=== PATIENT | female | born 2005 ===

== ENCOUNTER 2023-12-03 17:53 | Observation (INO) ==
[2023-12-03 20:16] LABS: Basophils # (auto) 0.01 K/uL (0.00-0.20); Basophils % (auto) 0.1 %; Eosinophils # (auto) 0.03 K/uL (0.00-0.50); Eosinophils % (auto) 0.3 %; Hemoglobin 10.4 g/dl (12.0-16.0); Immature Granulocytes # (auto) 0.04 K/uL (0.01-0.20); Immature Granulocytes % (auto) 0.4 %; Lymphocytes # (auto) 1.59 K/uL (1.20-3.40); Lymphocytes % (auto) 16.8 %; Mean Corpuscular Hemoglobin 25.4 pg (25.0-34.0); Mean Corpuscular Hgb Conc 30.6 g/dL (32.0-36.0); Mean Corpuscular Volume 82.9 fL (80.0-100.0); Mean Platelet Volume 11.1 fL (9.4-12.4); Monocytes # (auto) 0.93 K/uL (0.11-0.59); Monocytes % (auto) 9.8 %; Neutrophils # (auto) 6.86 K/uL (1.40-6.50); Neutrophils % (auto) 72.6 %; Platelet Count 243 K/uL (130-400); RDW Coefficient of Variation 14.4 % (11.5-14.5); RDW Standard Deviation 43.4 fL (36.4-46.3); White Blood Count 9.46 K/ul (4.8-10.8)
[2023-12-03 20:59] LABS: HIV 4th Gen(HIV 1,2 AB+p24 Ag Negative (Negative)
[2023-12-03 21:06] LABS: HepB Surface Ag with confirm Negative (Negative)
[2023-12-03 21:11] LABS: HepC Ab Rflx HepCQuant RNA Negative (Negative)
[2023-12-03 21:29] LABS: Rubella IgG Ab Immune (Immune); Rubella IgG Qnt 16.6 IU/mL
--- NOTE | 2023-12-03 21:31 | Ultrasound Report ---
Examination: OB Ultrasound, CLINICAL HISTORY: Dating Technique: Multiple real-time transabdominal sonographic images were obtained. Comparison: None available at the time of this dictation. Findings: Single live intrauterine is seen with cephalic presentation. heart rate measures 1 42 bpm. Amniotic fluid index is 15 cm. Placenta is noted in the left lateral orientation. The cervix is not visualized due to shadowing. Measurements are as follows: Biparietal diameter: 9.3 cm Head circumference: 32.91 cm Femur length: 7.33 cm Abdominal circumference: 34.08 cm. Findings correspond to a gestational age of 37 weeks 5 days. IMPRESSION: A single live intrauterine with estimated gestational age of 37 weeks 5 days. ACT 112: Negative or not required by law. Electronically signed by: Prashanth Wells M.D. 12/03/2023 9:29 PM
--- NOTE | 2023-12-03 21:43 | History & Physical Report ---
Date of Service December 03, 2023 Assessment & Plan (1) No care in current in third trimester: Plan: Plan is to register for care with the [facility] medical group. Plan Plan is to register her for routine care with [facility] [employer] group. Admission and Anticipated Discharge Date Admission Date: December 03, 2023 History of Present Illness Chief Complaint: No care. No blood work. Primary Care Provider: NO PCP Patient is a 18-year-old female from [facility]. She arrived in this country about 1 month prior to this visit. She had care in [facility]. She had several ultrasounds done there. Patient states that these ultrasounds gave her a due date of between 12/07 and 12/10/2023. Patient came from the ER unassigned call. Patient went to the ER to establish with physician for delivery of her . And also for blood work and ultrasound. Routine blood work was done. blood work did reveal anemia with hemoglobin of 10.6. Allergies Allergy/AdvReac Type Severity Reaction Status Date / Time No Known Allergies Allergy Unverified 12/03/23 18:54 Past Med/Surg History Problem List (Updated 12/03/23 @ 21:49 by Kale Gonzáles MD) No care in current in third trimester Medical History (Updated 12/03/23 @ 21:49 by Kale Gonzáles MD) Iodine deficiency Social History Smoking Status: Never smoker Hx Alcohol Use: No Hx Substance Use: No Preferred Language: Other Communication Ability: Effective Brass Molder Required: Yes Beliefs That Will Affect Care: Pentecostal marital status: Current Living Situation: Spouse Other Information That Helps Us Care for You: No Feels Safe at Home: Yes Assistive Devices: None Physical Exam Physical Exam: Physical exam revealed chest clear to auscultation and percussion. Neck supple trachea midline. Heart had a regular rhythm S1 and S2 were normal. Abdomen revealed a gravid abdomen consistent with a term size fetus. No tenderness palpated. No costovertebral angle tenderness. No calf tenderness. Results & Data Results & Data Vital Signs (Past 12 Hours) Vital Signs Temp Pulse Resp BP 12/03/23 19:30 16 12/03/23 19:30 36.8 C 16 12/03/23 19:27 77 12/03/23 19:27 111/64 12/03/23 18:01 36.4 C L 12/03/23 18:00 87 116/67 Diagnostic Findings Physical exam consistent with a term
== END 2023-12-03 22:05 | disposition home or self-care (01) ==
LOC: 4S1 17:53 → OPB 17:53 → 4S1 17:56

== ENCOUNTER 2023-12-09 06:19 | Inpatient (IN) ==
[2023-12-09] MEDS ORDERED: LIDOCAINE 1% LOCAL 20 ML VIAL INFIL PRN (07:20)
[2023-12-09] MEDS ORDERED: OXYTOCIN 30 UNITS/NSS 30 UNITS/500 ML BAG IV PRN ×2 (07:24→21:25)
--- NOTE | 2023-12-09 07:29 | History & Physical Report ---
Date of Service December 09, 2023 Assessment & Plan (1) No care in current in third trimester: Plan: Admit to L&D History of Present Illness Chief Complaint: ruptured membranes Primary Care Provider: [facility] PCP 18 Ida P0Jewell who presents to L&D for rupured membranes at 2 AM confirmed with [facility]. She wa seen 11/29 in L&D to [facility] [place]. 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 Review of Systems All systems reviewed & are unremarkable except as noted in HPI & below Physical Exam Constitutional: WD/WN, vitals as above Eyes: PERRL, conjunctivae normal, anicteric sclerae Neck: trachea midline, no thyromegaly Cardiovascular: RRR, no murmur, no edema Gastrointestinal (Abdomen): Inspection/Auscultation: abdomen normal to inspection Musculoskeletal: no cyanosis or clubbing, extremities motor strength 5/5 Skin: no rashes, warm and dry Neurologic: patellar DTR's 2+ bilat, sensation intact Psychiatric: A+Ox3, euthymic affect Results & Data Vital Signs (Past 12 Hours) Vital Signs Temp Pulse BP 12/09/23 07:01 97 H 109/54 L 12/09/23 06:40 36.8 C 95 H 98/58 L Code Status & VTE Plan VTE Prophylaxis Plan VTE Prophylaxis will be ordered: No Monitoring External Monitor Cat 1
--- NOTE | 2023-12-09 07:36 | History & Physical Report ---
Date of Service December 09, 2023 Assessment & Plan (1) No care in current in third trimester: Plan: admit to L&D History of Present Illness Chief Complaint: ruptured membranes Primary Care Provider: [facility] PCP 18 F P0000 at term with c/o of lekage of fluid since 2 AM with onset of contractions. She was seen in L&D on 11/30/23 to establish care in this country since she is from [facility]. She had care there. Her has been uncomplicated. 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 Review of Systems All systems reviewed & are unremarkable except as noted in HPI & below Physical Exam Constitutional: WD/WN, vitals as above Eyes: PERRL, conjunctivae normal, anicteric sclerae Respiratory: normal respiratory effort, lungs clear to auscultation Cardiovascular: RRR, no murmur, no edema Gastrointestinal (Abdomen): Inspection/Auscultation: abdomen normal to inspection Musculoskeletal: Extremities: extremities normal to inspection Skin: no rashes, warm and dry Neurologic: patellar DTR's 2+ bilat, sensation intact Psychiatric: A+Ox3, euthymic affect Genitourinary: Manual OB Exam: + cervical dilation fingertip, + cervical effacement 50% and + station high OB Exam Monitor Tracing: + external FHT monitor used, + external uterine monitor used, + category I and + normal FHT variability Results & Data Vital Signs (Past 12 Hours) Vital Signs Temp Pulse BP 12/09/23 07:01 97 H 109/54 L 12/09/23 06:40 36.8 C 95 H 98/58 L Code Status & VTE Plan VTE Prophylaxis Plan VTE Prophylaxis will be ordered: No Monitoring External Monitor Cat 1
[2023-12-09 07:59] LABS: Hematocrit (blood only) 34.8 % (37.0-47.0); Hemoglobin 10.8 g/dl (12.0-16.0); Mean Corpuscular Hemoglobin 25.8 pg (25.0-34.0); Mean Corpuscular Volume 83.1 fL (80.0-100.0); Mean Platelet Volume 10.9 fL (9.4-12.4); Platelet Count 245 K/uL (130-400); RDW Coefficient of Variation 14.6 % (11.5-14.5); RDW Standard Deviation 44.1 fL (36.4-46.3); Red Blood Count 4.19 M/uL (4.20-5.40); White Blood Count 9.91 K/ul (4.8-10.8)
[2023-12-09] MEDS: miSOPROStoL 50 MCG TAB PO ONE (09:06)
[2023-12-09] MEDS: LACTATED RINGER'S 1,000 ML IV PRN (16:05)
[2023-12-09] MEDS: BUTORPHANOL TARTRATE 2 MG/ML VIAL IV ONE (16:10)
[2023-12-09] MEDS ORDERED: LIDOCAINE 2% MPF LOCAL 5 ML VIAL EPI PRN (18:04)
[2023-12-09] MEDS ORDERED: fentaNYL citrate PF 100 MCG/2 ML VIAL EPI PRN (18:04)
[2023-12-09] MEDS ORDERED: NALBUPHINE HCL 5 MG in SYRINGE 0 ML IV PRN (18:04)
[2023-12-09] MEDS ORDERED: ePHEDrine sulfate 50 MG/ML AMP IV PRN (18:04)
[2023-12-09] MEDS ORDERED: NALOXONE HCL 0.4 MG/1 ML VIAL/CARP IV PRN (18:04)
[2023-12-09] MEDS ORDERED: NALOXONE HCL 1 MG in SODIUM CHLORIDE 0.9% 1,000 ML IV PRN (18:04)
[2023-12-09] MEDS ORDERED: SODIUM CHLORIDE 0.9% PF INJ 10 ML VIAL EPI PRN (18:04)
[2023-12-09] MEDS ORDERED: ROPIVACAINE 0.5% PF 5 MG/ML 20 ML VIAL EPI PRN (18:04)
[2023-12-09] MEDS ORDERED: BUPIVACAINE 0.25% PF 30 ML VIAL EPI PRN (18:04)
[2023-12-09] MEDS ORDERED: fentANYL 2 MCG/ML BUPIVacaine 0.125%-NSS 100ML BAG EPI PRN (18:04)
[2023-12-09] MEDS ORDERED: diphenhydrAMINE 50 MG/ML VIAL IV PRN (18:04)
--- NOTE | 2023-12-09 18:04 | Anesthesiology Consultation ---
Date of Service December 09, 2023 Assessment & Plan Chart Review Chart Review: Acceptable Risk for Labor Epidural Consults Requested none History Height/Weight Height: 5 ft 2.2 in Weight: 66 kg Allergies Allergy/AdvReac Type Severity Reaction Status Date / Time No Known Allergies Allergy Unverified 12/03/23 18:54 Medications Active Medications Generic Name Dose Route Start Last Admin Trade Name Manoloq PRN Reason Stop Dose Admin Lactated Ringer's 1,000 mls @ 125 mls/hr 12/09/23 07:20 12/09/23 18:00 Lr IV 12/11/23 07:19 999 mls/hr .Q8H PRN Infusion L&D Protocol Protocol Past Medical History Medical History (Updated 12/09/23 @ 08:18 by Samantha Valles RN) Hypothyroidism Iodine deficiency Social History Smoking Status: Never smoker Hx Alcohol Use: No Hx Substance Use: No Physical Exam Vital Signs Last Vital Signs Temp 36.7 C 12/09/23 09:00 Pulse 74 12/09/23 16:15 Resp 16 12/09/23 07:01 BP 120/71 12/09/23 16:15 Constitutional WD/WN, vitals as above Eyes PERRL, conjunctivae normal, anicteric sclerae Neck trachea midline, no thyromegaly Respiratory normal respiratory effort, lungs clear to auscultation Cardiovascular RRR, no murmur, no edema Gastrointestinal (Abdomen) Inspection/Auscultation: abdomen normal to inspection Musculoskeletal no cyanosis or clubbing, extremities motor strength 5/5 Extremities: extremities normal to inspection Skin no rashes, warm and dry Neurologic patellar DTR's 2+ bilat, sensation intact Psychiatric A+Ox3, euthymic affect Genitourinary Manual OB Exam: + cervical dilation + fingertip, + cervical effacement + 50% and + station + high OB Exam Monitor Tracing: + external FHT monitor used, + external uterine monitor used, + category I and + normal FHT variability Testing Laboratory Results 12/09/23 07:40
[2023-12-09] MEDS: fentANYL 2 MCG/ML BUPIVacaine 0.125%-NSS 100ML BAG ONE (18:45)
[2023-12-09] MEDS: LIDOCAINE 2%/EPINEPHRINE 1:200,000 20 ML PF ONE (18:45)
[2023-12-09] MEDS: BUPIVACAINE 0.25% PF 30 ML VIAL ONE (19:31)
[2023-12-09] MEDS: ePHEDrine sulfate 50 MG/ML AMP ONE (19:32)
[2023-12-09] MEDS: SODIUM CHLORIDE 0.9% PF INJ 10 ML VIAL ONE (19:32)
[2023-12-09] MEDS: fentaNYL citrate PF 100 MCG/2 ML VIAL EPI STA (19:32)
[2023-12-09] MEDS: fentaNYL citrate PF 100 MCG/2 ML VIAL ONE (19:32)
[2023-12-09] MEDS: BUPIVACAINE 0.25% PF 30 ML VIAL EPI STA (19:32)
[2023-12-09] MEDS: SODIUM CHLORIDE 0.9% PF INJ 10 ML VIAL EPI STA (19:33)
[2023-12-09] MEDS: LIDOCAINE 2%/EPINEPHRINE 1:200,000 20 ML PF EPI STA (19:34)
[2023-12-09] MEDS: OXYTOCIN 30 UNITS/NSS 30 UNITS/500 ML BAG IV PRN (20:45)
[2023-12-09] MEDS: METHYLERGONOVINE MALEATE 0.2 MG/ML AMP IM ONE (21:10)
[2023-12-09] MEDS ORDERED: ACETAMINOPHEN W/CODEINE #3 1 TAB PO PRN (21:25)
[2023-12-09] MEDS ORDERED: bisacodyL 10 MG SUPP PR PRN (21:25)
[2023-12-09] MEDS ORDERED: HYDROCORTISONE ACETATE 25 MG SUPP PR PRN (21:25)
[2023-12-09] MEDS ORDERED: DIPHTHER/TETAN/PERTUS Vaccine (Tdap, Adol/Adult) 0.5mL IM ONE (21:25)
[2023-12-09] MEDS ORDERED: oxyCODONE/ACETAMINOPHEN 5mg/325mg TAB PO PRN (21:25)
--- NOTE | 2023-12-09 21:35 | Delivery Summary ---
Vaginal Delivery Summary Date of Service December 09, 2023 Vaginal Delivery Summary Patient is a 1 para 1 late arrival for care. She only had 1 or 2 visits. Was admitted at 40 weeks gestation ruptured membranes. Given 1 p.o. dose of Cytotec. Contracted on her own went about 6 to 7 cm. Was given epidural. Membranes ruptured. Slight meconium. Went to full dilatation. Pushed out a live female via direct occiput anterior position over an intact perineum. Baby was delivered with a nuchal cord around the neck. Cord was allowed to pulse for 1 full minute. Cord was then clamped cut by the father. Cord blood was taken. With IV Pitocin running the placenta was removed intact. IM Methergine was used to help with the bleeding. First-degree laceration of the perineum was repaired anatomically. The vaginal mucosa was approximated out to beyond the hymenal ring with a 2-0 Vicryl. A deep suture of 2-0 Vicryl were used to approximate the bulbocavernosus muscle. 2 sutures were used to approximate the perineal body. A running subcuticular suture was used to approximate the perineal skin edges. Badge exam including rectovaginal examination revealed no hematoma formation or stitches through the rectum. Quantitative blood loss was 173 mL.
[2023-12-09] MEDS: ONDANSETRON INJ 2 MG/ML 2 ML VIAL IV PRN (23:00)
[2023-12-09] MEDS: BENZOCAINE 20% SPRY 85 APPLN/85 GM CAN EXT PRN (23:46)
[2023-12-09] MEDS: IBUPROFEN 600 MG TAB PO PRN (23:47)
[2023-12-10] MEDS: METHYLERGONOVINE MALEATE 0.2 MG/ML AMP ONE (04:28)
[2023-12-10 06:17] LABS: Hematocrit (blood only) 34.4 % (37.0-47.0); Mean Corpuscular Hemoglobin 26.3 pg (25.0-34.0); Mean Corpuscular Volume 82.3 fL (80.0-100.0); Platelet Count 232 K/uL (130-400); RDW Coefficient of Variation 14.7 % (11.5-14.5); RDW Standard Deviation 43.8 fL (36.4-46.3); Red Blood Count 4.18 M/uL (4.20-5.40); White Blood Count 16.64 K/ul (4.8-10.8)
[2023-12-10] MEDS: PRENATAL VITAMIN 1 TAB PO SCH (08:41)
[2023-12-10] MEDS: DOCUSATE SODIUM 100 MG CAP PO SCH (08:41)
--- NOTE | 2023-12-10 09:19 | Obstetrical Progress Note ---
Date of Service December 10, 2023 Subjective Ambulation: ambulating normally Voiding: no voiding problems Passing Gas:: Yes Diet Tolerance:: regular diet Lochia:: Small Feeding Type:: breast feeding Current Pain Level(1-10): 0 doing well Physical Exam Constitutional WD/WN, vitals as above Gastrointestinal (Abdomen) Inspection/Auscultation: abdomen normal to inspection abdomen soft and non-tender. fundus firm below U Musculoskeletal Extremities: extremities normal to inspection Skin no rashes, warm and dry Neurologic patellar DTR's 2+ bilat, sensation intact Psychiatric A+Ox3, euthymic affect Results & Data Vital Signs (Past 12 Hours) Vital Signs Temp Pulse Pulse Resp BP BP Pulse Ox 12/10/23 04:00 36.3 C L 64 18 111/65 97 12/10/23 01:00 36.4 C L 65 18 114/77 97 12/09/23 23:37 64 112/65 12/09/23 22:54 70 118/77 12/09/23 22:51 67 117/73 12/09/23 22:04 72 109/74 12/09/23 21:55 82 128/64 12/09/23 21:45 77 98 12/09/23 21:40 78 99 12/09/23 21:35 80 98 12/09/23 21:34 81 119/67 12/09/23 21:30 86 98 12/09/23 21:25 80 98 12/09/23 21:24 82 122/70 12/09/23 21:20 78 114/65 98 O2 Del Method 12/10/23 04:00 Room Air 12/10/23 01:00 Room Air 12/09/23 23:37 12/09/23 22:54 12/09/23 22:51 12/09/23 22:04 12/09/23 21:55 12/09/23 21:45 12/09/23 21:40 12/09/23 21:35 12/09/23 21:34 12/09/23 21:30 12/09/23 21:25 12/09/23 21:24 12/09/23 21:20 Laboratory Results 12/09/23 12/10/23 07:40 05:48 WBC 9.91 16.64 H RBC 4.19 L 4.18 L Hgb 10.8 L 11.0 L Hct 34.8 L 34.4 L MCV 83.1 82.3 MCH 25.8 26.3 MCHC 31.0 L 32.0 RDW Std Deviation 44.1 43.8 RDW Coeff of Tiffany 14.6 H 14.7 H Plt Count 245 232 MPV 10.9 11.0
--- NOTE | 2023-12-10 09:37 | Anesthesia Procedure Note ---
Date of Service December 10, 2023 Anesthesia Post Epidural Note Vital Signs Vital Signs: Temp Pulse Resp BP Pulse Ox O2 Del Method 36.3 C L 64 18 111/65 97 Room Air 12/10/23 04:00 12/10/23 04:00 12/10/23 04:00 12/10/23 04:00 12/10/23 04:00 12/10/23 04:00 Pain Intensity Abdomen: Pain Intensity: 2 Notes Mental Status: alert / awake / arousable and participated in evaluation Nausea / Vomiting: adequately controlled Pain: adequately controlled Airway Patency, RR, SpO2: stable & adequate BP & HR: stable & adequate Hydration State: stable & adequate Neuraxial Anesthesia: was administered and sensory block is resolving Anesthetic Complications: no major complications apparent Epidural: Removed without complications and With tip intact
[2023-12-10] MEDS: ACETAMINOPHEN 325 MG TAB PO PRN (12:34)
[2023-12-10] MEDS: bisacodyL 5 MG TABEC PO SCH (20:51)
[2023-12-11 07:03] LABS: Hematocrit (blood only) 32.3 % (37.0-47.0); Hemoglobin 9.9 g/dl (12.0-16.0)
--- NOTE | 2023-12-11 08:43 | Obstetrical Progress Note ---
Date of Service December 11, 2023 Assessment & Plan (1) Acute leg pain: PPD #2 t reports rt calf pain Doppler ordered if Doppler are nml. will d/c home Subjective Ambulation: ambulating normally Voiding: no voiding problems Passing Gas:: Yes Diet Tolerance:: regular diet Lochia:: Small Feeding Type:: breast feeding Review of Systems All systems reviewed & are unremarkable except as noted in HPI & below Physical Exam Constitutional WD/WN, vitals as above well developed and well nourished Eyes PERRL, conjunctivae normal, anicteric sclerae Neck trachea midline, no thyromegaly Respiratory normal respiratory effort, lungs clear to auscultation Auscultation: no crackles, no rales and no wheezes Cardiovascular RRR, no murmur, no edema Gastrointestinal (Abdomen) normal bowel sounds, soft, nontender, no hepatosplenomegaly Uterus is below umbilicus Musculoskeletal no cyanosis or clubbing, extremities motor strength 5/5 rt leg pain; no erythema or tenderness topalpation noted Skin no rashes, warm and dry Neurologic patellar DTR's 2+ bilat, sensation intact Psychiatric A+Ox3, euthymic affect Genitourinary normal external appearance Results & Data Vital Signs (Past 12 Hours) Vital Signs Temp Pulse Resp BP Pulse Ox O2 Del Method 12/11/23 00:36 36.7 C 98 H 18 96/59 L 98 Room Air
--- NOTE | 2023-12-11 09:53 | Ultrasound Report ---
ULTRASOUND RIGHT LOWER EXTREMITY VENOUS CLINICAL HISTORY: Right calf pain. Recent . COMPARISON STUDY: No priors. TECHNIQUE: Real-time, grayscale, and color Doppler sonography of the deep veins of the right lower ex tremity was performed from the inguinal crease to the calf. Compression and augmentation were utilize d. FINDINGS: There is no sonographic evidence of deep venous thrombosis identified in the right lower ex tremity. The common femoral, superficial femoral, and popliteal veins are patent and normally sujatha sible. The greater saphenous vein and the profunda femoris vein at the junction with the common femor al vein are clear. The visualized calf veins are patent. There is occlusive superficial venous thromb osis in the posterior calf at the site of interest. This measures approximately 9 cm in length. IMPRESSION: 1. There is no sonographic evidence of deep venous thrombosis identified in the right lower extremity . 2. There is occlusive superficial venous thrombosis in the posterior calf at the site of interest as above. ACT 112: Negative or not required by law. Electronically signed by: Carlos Marroquin M.D. 12/11/2023 9:51 AM
== END 2023-12-11 18:24 | disposition home health service (06) | DRG 807 ==
LOC: OPB 06:19 → 4S1 06:23 → 4E2 12-10 02:31